=== PATIENT | male | born 2000 | race Caucasian/White ===

== ENCOUNTER 2022-07-04 21:53 | Emergency (ER) | payer OTHER, MEDICAID ==
[2022-07-05] MEDS ORDERED: Lidocaine 1% 20 ML MDV ONE (00:44)
[2022-07-05] MEDS ORDERED: Ondansetron 4 MG/2 ML SDV ONE (00:56)
[2022-07-05] MEDS ORDERED: Ondansetron 4 MG/2 ML SDV IVPUSH ONE (01:03)
[2022-07-05] MEDS ORDERED: Lidocaine 1% 20 ML MDV INJECT ONE (01:04)
[2022-07-05] MEDS ORDERED: HYDROmorphone 1 MG/ML Syringe IVPUSH ONE (01:08)
[2022-07-05] MEDS ORDERED: cefTRIAXone 1 GM in Sodium Chloride 0.9% 100 ML IV ONE (01:29)
[2022-07-05] MEDS ORDERED: cefTRIAXone 1 GM Vial ONE ×2 (01:33→01:43)
[2022-07-05] MEDS ORDERED: Sodium Chloride 0.9% 100 ML ONE (01:43)
== END 2022-07-05 07:35 | disposition home or self-care (01) ==
LOC: JD.ED 21:53
DX: S02.2XXA Fracture of nasal bones, initial encounter for closed fracture (principal); S01.91XA Laceration without foreign body of unspecified part of head, initial encounter; V59.00XA Driver of pick-up truck or van injured in collision with unspecified motor vehicles in nontraffic accident, initial encounter; Y92.410 Unspecified street and highway as the place of occurrence of the external cause
CPT/HCPCS: 12015; 36415; 70450; 70486; 71045; 71260; 72125; 72170; 74177; 80053; 80307; 85025; 96365; 96375; 99284; J0696; J1170; J2405; J3490

== ENCOUNTER 2022-07-06 12:13 | Inpatient (IN) | payer MEDICAID ==
[2022-07-06] MEDS ORDERED: Ondansetron 4 MG/2 ML SDV IVPUSH ONE (12:39)
[2022-07-06] MEDS ORDERED: Sodium Chloride 0.9% 10 ML Syringe FLUSH PRN ×2 (12:39→13:53)
[2022-07-06] MEDS ORDERED: Sodium Chloride 0.9% 1,000 ML IV SCH (12:45)
[2022-07-06] MEDS ORDERED: HYDROmorphone 1 MG/ML Syringe IVPUSH ONE ×2 (13:49→16:11)
[2022-07-06] MEDS ORDERED: Iopamidol 612 MG/ML 100 ML Bottle IVPUSH ONE (13:53)
[2022-07-06] MEDS ORDERED: Ondansetron 8 MG in Sodium Chloride 0.9% 50 ML IV PRN (16:19)
[2022-07-06] MEDS ORDERED: Morphine 2 MG/ML SYRINGE IVPUSH PRN (16:19)
[2022-07-06] MEDS: Docusate Sodium 100 MG Cap PO SCH ×2 (16:45→23:57)
[2022-07-06] MEDS: Lactated Ringers 1,000 ML IV SCH (17:20)
[2022-07-07] MEDS: Lactated Ringers 1,000 ML IV SCH ×3 (00:54→16:40)
[2022-07-07] MEDS: Docusate Sodium 100 MG Cap PO SCH ×2 (08:36→16:32)
[2022-07-07] MEDS: Acetaminophen 325 MG Tab PO PRN (12:46)
[2022-07-08] MEDS: Lactated Ringers 1,000 ML IV SCH (01:05)
[2022-07-08] MEDS: Acetaminophen 325 MG Tab PO PRN (05:45)
== END 2022-07-08 11:20 | disposition home or self-care (01) | DRG 645 ==
LOC: JD.ED 12:13 → JD.MS 16:08
PROVIDERS: ADMIT Specialist; ATTEND Specialist
DX: E27.49 Other adrenocortical insufficiency (principal); E66.9 Obesity, unspecified; R73.9 Hyperglycemia, unspecified; Z68.32 Body mass index [BMI] 32.0-32.9, adult; Z79.899 Other long term (current) drug therapy
CPT/HCPCS: 36415; 72072; 72072-26; 74177; 74177-26; 80048; 80053; 81001; 82533; 82947; 83690; 83735; 85025; 85730; 86140; 94762; 96361; 96374; 96375; 96376; 99284; 99285-25; A9270-GY; J1170; J2405; J3490; J7030; J7120; Q9967